=== PATIENT | female | born 1985 | race Caucasian/White ===

== ENCOUNTER 2020-05-30 18:21 | Inpatient (IN) | payer BC ==
[2020-05-30] MEDS ORDERED: NALOXONE 0.4 MG/1 ML INJ IV PRN (20:28)
[2020-05-30] MEDS ORDERED: LIDOCAINE (2%) 20 MG/1 ML VIAL 20 ML MDV INFILTRATI ONE (20:28)
[2020-05-30] MEDS ORDERED: fentaNYL 100 MCG/2 ML INJ IV PRN (20:28)
[2020-05-30] MEDS ORDERED: PROMETHAZINE 25 MG TAB PO PRN (20:28)
[2020-05-30] MEDS ORDERED: ePHEDrine SULFATE 50 MG/1 ML INJ IV PRN (20:28)
[2020-05-30] MEDS ORDERED: MINERAL OIL 30 ML ORAL LIQD PO PRN (20:28)
[2020-05-30] MEDS ORDERED: BUTORPHANOL 2 MG/1 ML INJ IV PRN (20:28)
[2020-05-30] MEDS ORDERED: ACETAMINOPHEN 325 MG TAB PO PRN (20:28)
[2020-05-30] MEDS ORDERED: DINOPROSTONE 10 MG VAG SUPP VG ONE (20:28)
[2020-05-30] MEDS ORDERED: ONDANSETRON 4 MG/2 ML INJ IV PRN (20:28)
[2020-05-30] MEDS ORDERED: TERBUTALINE 1 MG/1 ML INJ SUB-Q PRN (20:28)
[2020-05-30] MEDS ORDERED: OXYTOCIN 20 UNIT/1000ML DRIP 20 UNITS/1,000 ML BAG IV SCH (21:00)
[2020-05-30] MEDS ORDERED: OXYTOCIN DRIP 30 UNITS/500 ML BAG IV SCH (21:00)
[2020-05-30 22:40] LABS: Hematocrit 37.9 % (30.3-42.9); Hemoglobin 12.8 gm/dl (10.1-14.3); Mean Corpuscular HGB Conc 34 % (30-34); Mean Corpuscular Volume 93 fl (79-97); Platelet Count 186 K/mm3 (140-440); Red Blood Count 4.09 M/mm3 (3.65-5.03); Red Cell Distribution Width 14.5 % (13.2-15.2)
--- NOTE | 2020-05-31 06:20 | History and Physical Report ---
History of Present Illness Date of examination: 05/31/20 Date of admission: 05/30/20 18:21 Chief complaint: Induction of labor History of present illness: Pt is a 34 yo at 40w2d EGA who presents from [facility] for BPP 02/25. She reports positive movement and denies LOF, vaginal bleeding, or painful contractions. She has received care with [facility] since 8 weeks EGA. Her has been complicated by glucose intolerance with normal 3hr GTT, near syncope, and right pyelectasis. She is GBS negative. Past History Past Medical History: other (gluten intolerance) Past Surgical History: no surgical history Family/Genetic History: cancer (mother breast age 45) Social history: no significant social history - Obstetrical History Expected Date of Delivery: 05/29/20 Actual Gestation: 40 Week(s) 2 Day(s) : 1 Para: 0 Hx # Term Pregnancies: 0 Number of Living Children: 0 Medications and Allergies Allergies Allergy/AdvReac Type Severity Reaction Status Date / Time sulfur dioxide Allergy Unknown Verified 05/30/20 19:57 Home Medications Medication Instructions Recorded Confirmed Last Taken Type One Daily Tablet 1 tab PO DAILY 05/30/20 05/30/20 05/29/20 08:00 History 1 Active Meds: Active Medications Acetaminophen (Tylenol) 650 mg PO Q4H PRN PRN Reason: Pain, Mild (1-3) Butorphanol Tartrate (Stadol) 1 mg IV Q2H PRN PRN Reason: Pain, Moderate(4-6) LABOR PAIN Butorphanol Tartrate (Stadol) 2 mg IV Q2H PRN PRN Reason: Pain , Severe (7-10) Ephedrine Sulfate (Ephedrine Sulfate) 10 mg IV Q2M PRN PRN Reason: Hypotension Fentanyl (Sublimaze) 100 mcg IV Q2H PRN PRN Reason: Pain,Severe (7-10) LABOR PAIN Oxytocin/Sodium Chloride (Pitocin/Ns 30 Unit/500ml) 30 units in 500 mls @ 2 mls/hr IV TITR MARY; Protocol Lactated Ringer's (Lactated Ringers) 1,000 mls @ 125 mls/hr IV DIRECT MARY Oxytocin/Sodium Chloride (Pitocin/Ns 20 Unit/1000ml Drip) 20 units in 1,000 mls @ 125 mls/hr IV DIRECT MARY Mineral Oil (Mineral Oil) 30 ml PO QHS PRN PRN Reason: Constipation Naloxone HCl (Naloxone) 0.1 mg IV Q2MIN PRN PRN Reason: Res Rate </= 8 or 02 SAT < 92% Ondansetron HCl (Zofran) 4 mg IV Q8H PRN PRN Reason: Nausea And Vomiting Promethazine HCl (Phenergan) 25 mg PO Q6H PRN PRN Reason: Nausea And Vomiting Terbutaline Sulfate (Brethine) 0.25 mg SUB-Q ONCE PRN PRN Reason: Hyperstimulation/Hypertonicity Review of Systems All systems: negative Genitourinary: no vaginal bleeding, no leakage of fluid, no contractions - Vital Signs Vital signs: Vital Signs Pulse BP 74 133/77 05/30/20 19:49 05/30/20 19:49 Temp Pulse Resp BP Pulse Ox 97.9 F 74 18 130/77 98 05/30/20 19:50 05/31/20 06:10 05/30/20 19:50 05/31/20 05:47 05/31/20 06:10 - Physical Exam Lungs: Positive: Normal air movement Abdomen: Positive: soft Uterus: Positive: enlarged (gravid, EFW 7lb) Extremities: Positive: normal - Obstetrical FHR: category 1 Uterine Contraction Monitor Mode: External Cervical Dilatation: 0.5 Cervical Effacement Percentage: 0 Uterine Contraction Pattern: Irregular Uterine Tone Measurement Phase: Contraction Uterine Contraction Intensity: Mild Results Result Diagrams: 05/30/20 22:05 All other labs normal. Assessment and Plan A: 34 yo at 40w2d EGA Non-reassuring testing GBS negative Right pyelectasis P: Admit to L&D Cervidil Closely monitor clinical status Anticipate
[2020-05-31] MEDS ORDERED: miSOPROStol 25 MCG TAB VG PRN (08:00)
[2020-05-31] MEDS: LACTATED RINGERS 1,000 ML IV SCH ×2 (11:53→16:31)
[2020-05-31] MEDS: BUTORPHANOL 2 MG/1 ML INJ IV PRN (16:20)
--- NOTE | 2020-05-31 16:26 | Event Note ---
Date: 05/31/20 Patient undergoing induction secondary to a biophysical profile of 6 out of 8. tracing has been category 1 during her induction. Cook catheter placed with a cervical exam 1 cm. Will initiate Pitocin augmentation.
[2020-06-01] MEDS: BUTORPHANOL 2 MG/1 ML INJ IV PRN (00:13)
[2020-06-01] MEDS: LACTATED RINGERS 1,000 ML IV SCH (04:50)
[2020-06-01] MEDS ORDERED: LIDOCAINE (2%) 20 MG/1 ML VIAL 20 ML MDV INFILTRATI ONE (08:39)
[2020-06-01] MEDS ORDERED: PROMETHAZINE 25 MG RECT SUPP PR PRN (09:00)
[2020-06-01] MEDS ORDERED: ONDANSETRON 4 MG/2 ML INJ IV PRN (09:00)
[2020-06-01] MEDS ORDERED: MAGNESIUM HYDROXIDE (MOM) ORAL LIQD UDC PO PRN (09:00)
[2020-06-01] MEDS ORDERED: PROMETHAZINE 25 MG TAB PO PRN (09:00)
[2020-06-01] MEDS ORDERED: diphenhydrAMINE 25 MG CAP PO PRN (09:00)
[2020-06-01] MEDS ORDERED: HYDROcodone/ACETAMINOPHEN 5-325 MG TAB PO PRN (09:00)
[2020-06-01] MEDS ORDERED: LANOLIN/ZINC/DIMETHICONE (LANSINOH) 7 GM TP PRN (09:00)
[2020-06-01] MEDS ORDERED: ACETAMINOPHEN 325 MG TAB PO PRN (09:00)
--- NOTE | 2020-06-01 09:00 | Procedure Note ---
OB Delivery Note - Delivery Date of Delivery: 06/01/20 Surgeon: DEISY URBINA Estimated blood loss: other (250 mL) - Vaginal Delivery presentation: vertex Delivery position: OA Delivery induction: cervidil Delivery augmentation: pitocin Delivery monitor: external FHT, external uterine Delivery placenta: spontaneous Delivery cord: nuchal cord, 3 umbilical vessels Episiotomy: none Delivery laceration: 2nd degree Delivery repair: vicryl Anesthesia: local Delivery comments: The patient had rapid progression from 8 cm to 10 cm. The presented at +1 station and the patient began pushing. The delivery was attended by the certified nurse mortgage servicing specialist economic forecaster. The head delivered without difficulty. A nuchal cord x1 was manually reduced. The shoulders delivered without difficulty. The infant was then placed on the patient's abdomen. The cord was clamped and cut and the was attended by the [facility] team. The placenta delivered spontaneously intact with a three-vessel cord. The is a liveborn male infant with Apgars of 7 and 8 weight 7 pounds 1 ounce. The patient sustained a midline second-degree laceration that was injected with lidocaine and repaired with 2-0 Vicryl in a normal fashion. Estimated blood loss of 250 mL - Infant A at 1 minute: 7 at 5 minutes: 8 Infant Gender: Male (Weight 7 pounds 1 ounce)
[2020-06-01] MEDS: IBUPROFEN 600 MG TAB PO SCH ×2 (12:16→18:17)
[2020-06-01] MEDS: WITCH HAZEL/ GLYCERIN PAD TP PRN (13:15)
[2020-06-02] MEDS: IBUPROFEN 600 MG TAB PO SCH ×2 (00:54→14:03)
[2020-06-02 01:45] LABS: Hematocrit 30.8 % (30.3-42.9); Hemoglobin 10.3 gm/dl (10.1-14.3)
--- NOTE | 2020-06-02 11:47 | Progress Note ---
Assessment and Plan - Patient Problems (1) Vaginal delivery Current Visit: Yes Status: Acute Plan to address problem: Patient doing well Discharge home Subjective - Subjective Date of service: 06/02/20 Interval history: Patient is doing well. She is without any significant complaints. Patient reports: appetite normal, voiding normally, pain well controlled [place]: doing well Objective - Vital Signs Latest vital signs: Vital Signs Temp Pulse Resp BP BP Pulse Ox 06/01/20 23:58 97.8 F 81 20 121/66 97 06/01/20 20:41 98.0 F 87 20 127/84 98 06/01/20 16:32 98.2 F 83 20 123/80 96 Intake and Output 06/01/20 06/02/20 06/02/20 22:59 06:59 14:59 Intake Total 360 120 Output Total 1050 Balance -690 120 Intake: Oral 120 Intake, Free Water 360 Output: Urine 1050 Void 1050 Other: Total, Intake Amount 120 Total, Output Amount 450 # Voids Void 1 1 - Exam Uterus: Present: normal, firm
--- NOTE | 2020-06-02 11:49 | Discharge Summary ---
Providers - Providers Date of Admission: 05/30/20 18:21 Date of discharge: 06/02/20 Attending physician: CATHERINE ORDAZ Primary care physician: CATHERINE ORDAZ Hospitalization Reason for admission: induction of labor Delivery: Laceration: 2nd degree Discharge diagnosis: IUP at term delivered baby: male Hospital course: The patient was admitted for induction of labor secondary to a biophysical profile of 6 out of 8. The patient had a successful vaginal delivery. Her course was uneventful. Condition at discharge: Good Disposition: DC-01 TO HOME OR SELFCARE - Discharge Diagnoses (1) Vaginal delivery Status: Acute Plan - Discharge Medications Prescriptions: Ibuprofen [Motrin] 800 mg PO Q8HR PRN #60 tablet PRN Reason: Pain , Severe (7-10) HYDROcodone/APAP 5-325 [[place] 5/325] 1 each PO Q6HR PRN #15 tablet PRN Reason: Pain - Provider Discharge Summary Activity: no sex for 6 weeks, no heavy lifting 4 weeks, no strenuous exercise Diet: routine Instructions: routine Additional instructions: [] Smoking cessation referral if applicable(refer to patient education folder for contact #) [] Refer to [facility] Booklet Call your doctor immediately for: * Fever > 100.5 * Heavy vaginal bleeding ( >1 pad per hour) * Severe persistent headache * Shortness of breath * Reddened, hot, painful area to leg or breast Schedule visit in 4 weeks - Follow up plan
[2020-06-02 17:14] VITALS: BP 113/63
[2020-06-02] MEDS: WITCH HAZEL/ GLYCERIN PAD TP PRN (21:44)
== END 2020-06-02 23:10 | disposition home or self-care (01) | DRG 807 ==
LOC: LD 18:21 → OB 06-01 11:39
PROVIDERS: ADMIT Obstetrics & Gynecology; ATTEND Obstetrics & Gynecology
PROC: 10E0XZZ Delivery of Products of Conception, External Approach (ICD-10-PCS; principal; 2020-06-01)
PROC: 0KQM0ZZ Repair Perineum Muscle, Open Approach (ICD-10-PCS; 2020-06-01)
DX: O76 Abnormality in fetal heart rate and rhythm complicating labor and delivery (principal); Z37.0 Single live birth; Z3A.40 40 weeks gestation of pregnancy; Z20.828 Contact with and (suspected) exposure to other viral communicable diseases; O99.89 Other specified diseases and conditions complicating pregnancy, childbirth and the puerperium; O69.81X0 Labor and delivery complicated by cord around neck, without compression, not applicable or unspecified; O70.1 Second degree perineal laceration during delivery
CPT/HCPCS: 36415; 85014; 85018; 85027; 86850; 86900; 86901; G0378; A6250; J0595; J2590; J3010; J7120; U0003-CS